=== PATIENT | female | born 1960 | race Caucasian/White ===

== ENCOUNTER 2023-08-27 12:20 | Outpatient (CLI) | payer OTHER ==
[~2023-08-27 12:20] MED LIST: AMLODIPINE BES2.5 MG PO; AVAPRO300 MG PO
== END 2023-08-27 12:28 | disposition home or self-care (01) ==
LOC: RAD 12:20
DX: S92.322A Displaced fracture of second metatarsal bone, left foot, initial encounter for closed fracture (principal)

== ENCOUNTER 2024-01-05 11:28 | Outpatient (CLI) | payer OTHER | END 2024-01-05 11:32 | disposition home or self-care (01) | LOC: RAD 11:28 | PROVIDERS: ATTEND Internal Medicine Cardiovascular Disease | DX: I63.6 Cerebral infarction due to cerebral venous thrombosis, nonpyogenic (principal); I11.9 Hypertensive heart disease without heart failure ==

== ENCOUNTER 2024-01-12 08:40 | Outpatient (CLI) | payer OTHER | END 2024-01-12 08:41 | disposition home or self-care (01) | LOC: NUCLEAR 08:40 | PROVIDERS: ATTEND Internal Medicine Cardiovascular Disease | DX: I63.9 Cerebral infarction, unspecified (principal); G45.0 Vertebro-basilar artery syndrome ==

== ENCOUNTER 2025-02-16 15:02 | Emergency (ER) | payer OTHER ==
[~2025-02-16] VITALS: Ht 175.3 cm; Wt 48.1 kg
[2025-02-16] MEDS ORDERED: LOSARTAN POTASS25 MG (15:18)
[2025-02-16 17:15] LABS: HEMATOCRIT 34.3 % (36.0-45.00); HEMOGLOBIN 11.3 g/dL (12.0-15.00); MEAN CELL VOLUME 99.5 fL (80.00-100.00); MEAN CORPUSCULAR HEMOGLOBIN 32.9 pg (27.00-32.0); MEAN CORPUSCULAR HGB CONC 33.1 g/dl (32.0-36.0); PLATELET COUNT 431 K/uL (150-450); RED BLOOD COUNT 3.45 M/uL (4.00-6.00); RED CELL DISTRIBUTION WIDTH 14.1 % (11.5-14.5)
[2025-02-16 17:50] LABS: INR 1.13; PARTIAL THROMBOPLASTIN TIME 26.9 SECONDS (22.0-34.0); PROTHROMBIN TIME 12.2 SECONDS (9.0-11.5)
[2025-02-16 18:00] LABS: ALBUMIN 2.9 gm/dL (3.4-5.0); BILIRUBIN TOTAL 0.53 mg/dL (0.3-1.2); CALCIUM 9.2 mg/dL (8.5-10.1); CREATININE SERUM 0.6 mg/dL (0.55-1.02); GFR 100.97; GLOBULINA 4.2 G/DL (2.4-3.5); POTASSIUM 4.2 mEq/L (3.5-5.1); TOTAL PROTEIN 7.1 gm/dL (6.4-8.2)
[2025-02-16 18:52] LABS: URINE APPEARANCE Cloudy; URINE BILIRRUBIN Negative (NEGATIVE); URINE BLOOD Negative; URINE COLOR Dark Yellow; URINE GLUCOSE Negative (NEGATIVE); URINE KETONE Negative (NEGATIVE); URINE LEUKOCYTE Moderate; URINE NITRATE Negative; URINE PROTEIN Negative (NEGATIVE)
[2025-02-16 18:57] LABS: URINE CAST 1.76 uL (0.0-1.40); URINE EPITHELIAL CELLS 12.3 uL (0.0-38.8); URINE RBC 19.7 uL (0.0-20.8)
[2025-02-16 19:01] LABS: URINE BACTERIA > 9821.5 uL (0.0-1933)
[2025-02-16] MEDS ORDERED: CEPHALEXIN500 MG PO (19:06)
[2025-02-16] MEDS ORDERED: CEFTRIAXONE SODIUM 1,000 MG VIAL IV ONE (19:15)
[2025-02-16] MEDS ORDERED: CEFTRIAXONE SODIUM 1,000 MG VIAL ONE (19:18)
== END 2025-02-16 20:38 ==
LOC: ER 15:02
PROVIDERS: General Practice
DX: N39.0 Urinary tract infection, site not specified (principal); G89.11 Acute pain due to trauma; M25.551 Pain in right hip; I10 Essential (primary) hypertension